=== PATIENT | female | born 1995 | race African-American/Black ===

== ENCOUNTER 2025-08-01 06:06 | Inpatient (IN) | payer SELFPAY ==
[2025-08-01] MEDS ORDERED: Sodium Chloride 0.9% 10 ML Syringe FLUSH PRN (19:09)
[2025-08-01] MEDS ORDERED: Nalbuphine 10 MG/1 ML Vial IVPUSH PRN (19:09)
[2025-08-01] MEDS ORDERED: Ondansetron 4 MG/2 ML SDV IVPUSH PRN (19:09)
[2025-08-01] MEDS ORDERED: Misoprostol 25 MCG (1/4 of 100 MCG) Tab VAG PRN (19:09)
[2025-08-01] MEDS ORDERED: Oxytocin/0.9 % Sodium Chloride 30 UNIT/500 ML BAG IV SCH (19:15)
[2025-08-01 19:32] LABS: BASOPHILS ABSOLUTE AUTO 0.0 K/mm3 (0.0-0.2); BASOPHILS PERCENT AUTO 0.2 % (0.0-1.0); EOSINOPHILS ABSOLUTE AUTO 0.0 K/mm3 (0.0-0.4); EOSINOPHILS PERCENT AUTO 0.3 % (0.0-6.0); IMMATURE GRAN ABSOLUTE AUTO 0.04 K/mm3 (0.00-0.05); IMMATURE GRAN PERCENT AUTO 0.6 % (0.0-0.4); LYMPHOCYTES ABSOLUTE AUTO 1.8 K/mm3 (1.0-4.8); LYMPHOCYTES PERCENT AUTO 27.4 % (24.0-44.0); MEAN PLATELET VOLUME 11.3 fl (9.4-12.3); MONOCYTES ABSOLUTE AUTO 0.6 K/mm3 (0.0-0.8); MONOCYTES PERCENT AUTO 9.8 % (0.0-8.0); NEUTROPHILS ABSOLUTE AUTO 4.0 K/mm3 (1.8-7.7); NEUTROPHILS PERCENT AUTO 61.7 % (41.0-71.0); NRBC ABSOLUTE 0.00 (0.00-0.02); NRBC PERCENT 0.0 % (0.0-0.2); PLATELET COUNT,PLT 227 K/mm3 (150-400); RED BLOOD CELL COUNT 3.80 M/mm3 (4.10-5.30); WHITE BLOOD CELL COUNT,WBC 6.54 K/mm3 (3.9-11.3)
[2025-08-01] MEDS: Oxytocin/0.9 % Sodium Chloride 30 UNIT/500 ML BAG IV SCH (20:20)
[2025-08-01] MEDS: Lactated Ringers 1,000 ML IV SCH (20:20)
[2025-08-01] MEDS: Sodium Chloride 0.9% 10 ML Syringe FLUSH SCH (21:35)
[2025-08-02] MEDS ORDERED: diphenhydrAMINE 50 MG/ML SDV IVPUSH PRN (00:34)
[2025-08-02] MEDS ORDERED: ePHEDrine 50 MG/ML SDV IVPUSH PRN (00:34)
[2025-08-02] MEDS ORDERED: fentaNYL 100 MCG/2 ML SDV EPIDUR PRN (00:34)
[2025-08-02] MEDS: Bupivacaine/fentaNYL/NS 100 ML Bag EPIDUR PRN (01:08)
[2025-08-02] MEDS: Benzocaine/Menthol 20%-0.5% Spray 78 GM Cannister TOP PRN (11:27)
[2025-08-02] MEDS: Witch Hazel Medicated Pads 40/Jar TOP PRN (11:28)
[2025-08-03 05:54] LABS: MEAN PLATELET VOLUME 11.2 fl (9.4-12.3); NRBC ABSOLUTE 0.00 (0.00-0.02); NRBC PERCENT 0.0 % (0.0-0.2); PLATELET COUNT,PLT 211 K/mm3 (150-400); RED BLOOD CELL COUNT 3.95 M/mm3 (4.10-5.30); WHITE BLOOD CELL COUNT,WBC 6.00 K/mm3 (3.9-11.3)
[2025-08-03 06:11] LABS: A/G RATIO 0.6 (1-2); ALANINE AMINOTRANSFERASE,ALT 16.0 U/L (14-59); ASPARTATE AMNIOTRANSFERASE,AST 24.0 U/L (15-37); BILIRUBIN TOTAL 0.6 mg/dL (0.2-1.0); BLOOD UREA NITROGEN,BUN 6.0 mg/dL (7-18); CARBON DIOXIDE,CO2 22.0 mEq/L (21-32); CHLORIDE,CL 106.0 mEq/L (98-107); CREATININE 0.6 mg/dL (0.55-1.02); EST CRCL DRUG DOSING (CG) 135.75 mL/min; ESTIMATED GFR 125.0 mL/min (>60); GLUCOSE RANDOM 86.0 mg/dL (70-99); POTASSIUM,K 4.1 mEq/L (3.5-5.1); PROTEIN TOTAL,TP 5.9 g/dl (6.4-8.2); SODIUM,NA 137.0 mEq/L (136-145)
== END 2025-08-03 14:58 | disposition home or self-care (01) | DRG 807 ==
LOC: JD.OB 06:06 → OBSVTOIN 08-02 06:06 → JD.OB 08-02 06:07
PROVIDERS: ADMIT Obstetrics & Gynecology; ATTEND Obstetrics & Gynecology
PROC: 10E0XZZ Delivery of Products of Conception, External Approach (ICD-10-PCS; principal; 2025-08-02)
PROC: 10H07YZ Insertion of Other Device into Products of Conception, Via Natural or Artificial Opening (ICD-10-PCS; principal; 2025-08-02)
PROC: 3E0R3NZ Introduction of Analgesics, Hypnotics, Sedatives into Spinal Canal, Percutaneous Approach (ICD-10-PCS; principal; 2025-08-02)
PROC: 3E033VJ Introduction of Other Hormone into Peripheral Vein, Percutaneous Approach (ICD-10-PCS; principal; 2025-08-02)
PROC: 10907ZC Drainage of Amniotic Fluid, Therapeutic from Products of Conception, Via Natural or Artificial Opening (ICD-10-PCS; principal; 2025-08-02)
DX: O48.0 Post-term pregnancy (principal); Z37.0 Single live birth; Z3A.40 40 weeks gestation of pregnancy
CPT/HCPCS: 36415; 51702; 59025; 59409; 80053; 85025; 85027; 86592; 86850; 86900; 86901; A9270-GY; J3490; J7120; J7999